=== PATIENT | female | born 1950 | race Caucasian/White ===

== ENCOUNTER 2017-04-18 22:36 | Emergency (ER) | payer MEDICARE ==
[~2017-04-18] VITALS: Ht 167.6 cm; Wt 75.8 kg
[~2017-04-18 22:36] MED LIST: AMOXIL500 MG PO; BENTYL20 MG PO; FLONASE 50 MCG16 GM; HYDROCHLOROTHIA1 TA2 PO; HYDROCHLOROTHIA1 TAB PO; K-DUR 2020 MEQ PO; LISINOPRIL 10MG10 MG PO; LISINOPRIL/HCTZ1 TA3 PO; PRILOSEC20 MG PO; ROBAXIN-750750 MG PO
[2017-04-18] MEDS ORDERED: BUSPAR 10MG TAB10 MG PO (22:49)
[2017-04-18] MEDS ORDERED: AMLO5TAB PO (22:49)
[2017-04-18] MEDS ORDERED: HCTZ/LISINOPRIL1 TA3 PO (22:50)
[2017-04-18] MEDS ORDERED: POTASSIUM CHLO20 ME2 PO (22:51)
[2017-04-18] MEDS ORDERED: VITAMIN D1000 IU PO (22:53)
--- OUTSIDE RECORDS SUMMARY | 2017-04-18 22:53 | External Medical Summary Rpt | CCD ---
Author Author [employer] Organization [employer] Address Unknown Phone Unavailable Purpose Continuity of Care Document - through 2016
--- OUTSIDE RECORDS SUMMARY | 2017-04-18 22:53 | External Medical Summary Rpt | CCD ---
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
--- OUTSIDE RECORDS SUMMARY | 2017-04-18 22:53 | External Medical Summary Rpt | CCD ---
Author Author , MORGAN BOX Address Unknown Phone [email or web address] Purpose Continuity of Care Document - through [...]
--- OUTSIDE RECORDS SUMMARY | 2017-04-18 22:54 | External Medical Summary Rpt | CCD ---
Author Author , CHARU BOX Address Unknown Phone Immunization Name Date Rout CVX Reac Dose Comm Prov Is Faci e tion ent ider Refu lity Give sed n Infl 10-1 Intr 0.5 Hist PD20 No PD20 uenz 8-20 amus mL oric 255 255 a 17 cula al Quad r Info rmat W/Pr ion es - Sour ce Unsp ecif ied
--- OUTSIDE RECORDS SUMMARY | 2017-04-18 22:54 | External Medical Summary Rpt | CCD ---
Author Author , CHARU BOX Address Unknown Phone [email or web address] Immunization Name Date Rout CVX Reac Dose Comm Prov Is Faci e tion ent ider Refu lity Give sed n Infl 10-1 Intr 0.5 Hist PD20 No PD20 uenz 8-20 amus mL oric 255 255 a 17 cula al Quad r Info rmat W/Pr ion es - Sour ce Unsp ecif ied
--- NOTE | 2017-04-18 23:13 | Emergency Room Report ---
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 N Clinical Suspician of Infection? N Mental Status: 1 - Regular (Normal Baseline) Sepsis Risk:Low Sepsis Risk Have you (or family members/close friends) recently traveled outside the [place]? N If Yes, where/when: Have you had exposure to infectious disease within the past month? N TB? Other? 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 w/o hemoptysis Cardiac Chest Pain Chest pain indicative of cardiac No Timing/Duration this evening Severity moderate ALLERGIES Coded Allergies: No Known Allergies (04/18/17) Home Medications Active Scripts Potassium Chloride (K-Dur) 20 MEQ PO DAILY #30 TER Ref 2 Prov: 12/20/16 Reported Medications Buspirone Hcl (Buspar 10MG) 10 MG PO DAILY #90 Amlodipine Besylate (Amlodipine) 5 MG PO DAILY #90 LISINOPRIL/HYDROCHLOROTHIAZIDE (Lisinopril-Hctz 20-12.5 MG Tab) 1 TAB PO DAILY #60 POTASSIUM CHL (Potassium Chloride) 20 MEQ PO DAILY CHOLECALCIFEROL (VITAMIN D3) (Vitamin D3) 50,000 IUNITS PO 2 X WEEK History Medical History General CAD? No Angina: No [place]: No Hypertension? Yes Hyperlipidemia? No CHF? No DVT? No PE? No COPD? No Asthma? Yes Anemia? No GERD? No Gastric ulcers? No GI Bleed? No Hernia? Yes Thyroid Problems? No Hypothyroidism? No CVA? No Seizures? No Diabetes? No Insulin Dependent: No Insulin Pump: No Home FSBS? No Renal Insuffiency? No End Stage Renal Disease? No UTI? Yes Stones? Yes BPH? No GB Disease: Yes Nephritic Syndrome? No Asplenia? No Hepatitis? No Sickle Cell Disease? No Arthritis? No Migraines? No Cataracts? No Glaucoma? No MRSA? No HIV? No TB? No Anxiety? No Depression? No Cancer? No More? 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 Respiratory cough, denies shortness of breath, denies wheezing Cardiovascular denies chest pain, denies syncope Gastrointestinal denies diarrhea, denies vomiting Genitourinary denies: dysuria, frequency, hesitancy, hematuria. Musculoskeletal denies back pain, denies joint pain, denies joint swelling, denies neck pain Skin denies rash Psychiatric/Neurological denies headache, denies seizure Physical Exam Vital Signs Vital Signs Date Time Temp Pulse Resp B/P Pulse O2 O2 Flow FiO2 Ox Delivery Rate 04/18 2242 98.7 70 22 160/87 99 - WBC >12,000 or <4,000 or 10% bands? 2 or more SIRS Criteria Met? B/P:160/87 MAP:111 Creatinine >2.0? UA output<0.5ml/kg/hr for 2 hrs? Platelet count >100,000? Lactate >2.0mmol/1? INR >1.2 or PTT > than 60 sec? Evidence of Organ Dysfunction? Provider documented clinical suspician of infection? N Sepsis Criteria Count: 1 Sepsis Risk: Low Sepsis Risk General Appearance no apparent distress Eye Exam - bilateral eye PERRL, bilateral eye EOMI Ear, Nose, Throat normal ENT inspection Neck supple Respiratory Status No: respiratory distress. Lung Sounds bilateral: rhonchi. 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 No Results/Orders Laboratory Tests 04/18/172312: Influenza Type A Ag NOT DETECTED, Influenza Type B Ag NOT DETECTED 04/18/172254: Lactic Acid 1.7 04/18/172254: Sodium 142, Potassium 3.2 L, Chloride 104, Carbon Dioxide 31, BUN 12, Creatinine 1.1 H, Estimated Creat Clear 60, Estimated GFR (MDRD) 50 L, Glucose 118 H, Calcium 9.1, Total Bilirubin 0.3, AST 13 L, ALT 18, Alkaline Phosphatase 98, Total Protein 6.9, Albumin 3.4, Globulin 3.5 H, Albumin/ Globulin Ratio 1.0 L, WBC 10.2, RBC 4.33, Hgb 13.2, Hct 38.5, MCV 88.9, RDW 14.2, Plt Count 274, MPV 8.2, Gran % 49.9, Gran # 5.1, Lymphocytes % 41.4, Monocytes % 5.1, Eosinophils % 2.9, Basophils % 0.7, Lymphocytes # 4.2, Monocytes # 0.5, Eosinophils # 0.3, Basophils # 0.1, PUBS MCHC 34.3, MCH 30.5, Urine Color YELLOW, Urine Appearance CLEAR, Urine pH 6.0, Ur Specific [place] 1.010, Urine Protein NEGATIVE, Urine Ketones NEGATIVE, Urine Blood 1+ H, Urine Nitrate NEGATIVE, Urine Bilirubin NEGATIVE, Urine Urobilinogen 0.2, Ur Leukocyte Esterase TRACE H, Urine RBC 3-5, Urine WBC 3-5, Ur Squamous Epith Cells OCC, Urine Bacteria OCC, Urine Glucose NEGATIVE Current Medication Orders Sig/Phi Start time Last Medication Dose Route Stop Time Status Admin Benzonatate 0 .STK-MED ONE 04/18 2356 DC PO Levofloxacin 0 .STK-MED ONE 04/18 2355 DC .ROUTE Methylprednisolone 0 .STK-MED ONE 04/18 2355 DC Sodium Succinate .ROUTE Sodium Chloride 10 ML PRN PRN 04/18 2245 AC IV 04/19 2240 Orders Procedure Date/time Status INFLUENZA A&B ANTIGENS 04/18 2312 Complete CHEST(2 VIEWS-NOT PORTABLE) 04/18 2241 Active IV SALINE LOCK 04/18 2241 Active CULTURE, BLOOD 04/18 2241 Active URINALYSIS/COMPLETE 04/18 2241 Complete LACTIC ACID 04/18 2241 Complete CBC WITH AUTO DIFF 04/18 2241 Complete CHEM 12 PROFILE 04/18 2241 Complete XRAY/CT/US XRAY/CT/US XRAY chest XR interpretation by reviewed by me Xray Results normal/NAD Departure Departure Time of Disposition 2338 Disposition DC Home or Self Care(routine) Clinical Impression Primary Impression: Bronchitis Condition STABLE Referrals Desean Dunlap MD (Family) Patient Instructions DI for Cough -- Adult Additional Instructions fluids and see pcp and use meds Discharge Counseling Counseled pt/family regarding diagnosis, test results, medications/RX, follow up needs Prescriptions Current Visit Scripts BENZONATATE (Benzonatate) 100 MG PO TID #15 CAP Prednisone (Prednisone 20MG) 20 MG PO BID #10 TAB Azithromycin (Zithromycin (Z-MARCELINA) 250MG Tab) 250 MG PO DAILY #6 TAB TAKE TWO (2) TABLETS ON DAY 1, THEN ONE (1) TABLET DAY #2 THRU #5 ED Critical Care Critical Care No at 2401
--- NOTE | 2017-04-18 23:13 | Emergency Room Report ---
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 N Clinical Suspician of Infection? N Mental Status: 1 - Regular (Normal Baseline) Sepsis Risk:Low Sepsis Risk Have you (or family members/close friends) recently traveled outside the [place]? N If Yes, where/when: Have you had exposure to infectious disease within the past month? N TB? Other? Specify: Source patient, RN notes reviewed, family, old records Exam Limitations no limitations Comment pt with nnp cough and congestion over the last 2 days w/o hemoptysis Cardiac Chest Pain Chest pain indicative of cardiac No Timing/Duration this evening Severity moderate ALLERGIES Coded Allergies: No Known Allergies (04/18/17) Home Medications Active Scripts Potassium Chloride (K-Dur) 20 MEQ PO DAILY #30 TER Ref 2 Prov: 12/20/16 Reported Medications Buspirone Hcl (Buspar 10MG) 10 MG PO DAILY #90 Amlodipine Besylate (Amlodipine) 5 MG PO DAILY #90 LISINOPRIL/HYDROCHLOROTHIAZIDE (Lisinopril-Hctz 20-12.5 MG Tab) 1 TAB PO DAILY #60 POTASSIUM CHL (Potassium Chloride) 20 MEQ PO DAILY CHOLECALCIFEROL (VITAMIN D3) (Vitamin D3) 50,000 IUNITS PO 2 X WEEK History Medical History General CAD? No Angina: No [place]: No Hypertension? Yes Hyperlipidemia? No CHF? No DVT? No PE? No COPD? No Asthma? Yes Anemia? No GERD? No Gastric ulcers? No GI Bleed? No Hernia? Yes Thyroid Problems? No Hypothyroidism? No CVA? No Seizures? No Diabetes? No Insulin Dependent: No Insulin Pump: No Home FSBS? No Renal Insuffiency? No End Stage Renal Disease? No UTI? Yes Stones? Yes BPH? No GB Disease: Yes Nephritic Syndrome? No Asplenia? No Hepatitis? No Sickle Cell Disease? No Arthritis? No Migraines? No Cataracts? No Glaucoma? No MRSA? No HIV? No TB? No Anxiety? No Depression? No Cancer? No More? 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 Respiratory cough, denies shortness of breath, denies wheezing Cardiovascular denies chest pain, denies syncope Gastrointestinal denies diarrhea, denies vomiting Genitourinary denies: dysuria, frequency, hesitancy, hematuria. Musculoskeletal denies back pain, denies joint pain, denies joint swelling, denies neck pain Skin denies rash Psychiatric/Neurological denies headache, denies seizure Physical Exam Vital Signs Vital Signs Date Time Temp Pulse Resp B/P Pulse O2 O2 Flow FiO2 Ox Delivery Rate 04/18 2242 98.7 70 22 160/87 99 - WBC >12,000 or <4,000 or 10% bands? 2 or more SIRS Criteria Met? B/P:160/87 MAP:111 Creatinine >2.0? UA output<0.5ml/kg/hr for 2 hrs? Platelet count >100,000? Lactate >2.0mmol/1? INR >1.2 or PTT > than 60 sec? Evidence of Organ Dysfunction? Provider documented clinical suspician of infection? N Sepsis Criteria Count: 1 Sepsis Risk: Low Sepsis Risk General Appearance no apparent distress Eye Exam - bilateral eye PERRL, bilateral eye EOMI Ear, Nose, Throat normal ENT inspection Neck supple Respiratory Status No: respiratory distress. Lung Sounds bilateral: rhonchi. Cardiovascular regular rate/rhythm, systolic murmur Peripheral Pulses Pulses normal Yes Gastrointestinal soft Extremities normal inspection Strength 4 Upper Ext (L), 4 Upper Ext (R), 4 Lower Ext (L), 4 Lower Ext (R) Neurologic alert, ceramic saw tender II-XII nml as tested, no motor/sensory deficits Reflexes Reflexes normal No Mental status normal mood/affect Skin no rash cons.w/shingles Medical Decision Making LABS/Meds/Orders Pt receiving controlled substance in ED? No Results/Orders Laboratory Tests 04/18/172312: Influenza Type A Ag NOT DETECTED, Influenza Type B Ag NOT DETECTED 04/18/172254: Lactic Acid 1.7 04/18/172254: Sodium 142, Potassium 3.2 L, Chloride 104, Carbon Dioxide 31, BUN 12, Creatinine 1.1 H, Estimated Creat Clear 60, Estimated GFR (MDRD) 50 L, Glucose 118 H, Calcium 9.1, Total Bilirubin 0.3, AST 13 L, ALT 18, Alkaline Phosphatase 98, Total Protein 6.9, Albumin 3.4, Globulin 3.5 H, Albumin/ Globulin Ratio 1.0 L, WBC 10.2, RBC 4.33, Hgb 13.2, Hct 38.5, MCV 88.9, RDW 14.2, Plt Count 274, MPV 8.2, Gran % 49.9, Gran # 5.1, Lymphocytes % 41.4, Monocytes % 5.1, Eosinophils % 2.9, Basophils % 0.7, Lymphocytes # 4.2, Monocytes # 0.5, Eosinophils # 0.3, Basophils # 0.1, PUBS MCHC 34.3, MCH 30.5, Urine Color YELLOW, Urine Appearance CLEAR, Urine pH 6.0, Ur Specific [place] 1.010, Urine Protein NEGATIVE, Urine Ketones NEGATIVE, Urine Blood 1+ H, Urine Nitrate NEGATIVE, Urine Bilirubin NEGATIVE, Urine Urobilinogen 0.2, Ur Leukocyte Esterase TRACE H, Urine RBC 3-5, Urine WBC 3-5, Ur Squamous Epith Cells OCC, Urine Bacteria OCC, Urine Glucose NEGATIVE Current Medication Orders Sig/Phi Start time Last Medication Dose Route Stop Time Status Admin Benzonatate 0 .STK-MED ONE 04/18 2356 DC PO Levofloxacin 0 .STK-MED ONE 04/18 2355 DC .ROUTE Methylprednisolone 0 .STK-MED ONE 04/18 2355 DC Sodium Succinate .ROUTE Sodium Chloride 10 ML PRN PRN 04/18 2245 AC IV 04/19 2240 Orders Procedure Date/time Status INFLUENZA A&B ANTIGENS 04/18 2312 Complete CHEST(2 VIEWS-NOT PORTABLE) 04/18 2241 Active IV SALINE LOCK 04/18 2241 Active CULTURE, BLOOD 04/18 2241 Active URINALYSIS/COMPLETE 04/18 2241 Complete LACTIC ACID 04/18 2241 Complete CBC WITH AUTO DIFF 04/18 2241 Complete CHEM 12 PROFILE 04/18 2241 Complete XRAY/CT/US XRAY/CT/US XRAY chest XR interpretation by reviewed by me Xray Results normal/NAD Departure Departure Time of Disposition 2338 Disposition DC Home or Self Care(routine) Clinical Impression Primary Impression: Bronchitis Condition STABLE Referrals Desean Dunlap MD (Family) Patient Instructions DI for Cough -- Adult Additional Instructions fluids and see pcp and use meds Discharge Counseling Counseled pt/family regarding diagnosis, test results, medications/RX, follow up needs Prescriptions Current Visit Scripts BENZONATATE (Benzonatate) 100 MG PO TID #15 CAP Prednisone (Prednisone 20MG) 20 MG PO BID #10 TAB Azithromycin (Zithromycin (Z-MARCELNIA) 250MG Tab) 250 MG PO DAILY #6 TAB TAKE TWO (2) TABLETS ON DAY 1, THEN ONE (1) TABLET DAY #2 THRU #5 ED Critical Care Critical Care No at 7723
[2017-04-18 23:15] LABS: HEMOGLOBIN 13.2 g/dL (12.2-16.2); LYMPH # 4.2 K/mm3 (0.7-4.5); LYMPH % 41.4 % (10-50.0)
[2017-04-18 23:46] LABS: URINE BILIRUBIN - DIPSTICK NEGATIVE (NEG); URINE BLOOD 1+ (NEG)
[2017-04-18 23:52] LABS: URINE SQUAMOUS CELLS OCC #/hpf (0-5)
[2017-04-18] MEDS ORDERED: ZITHROMAX Z PA250 MG PO (23:58)
[2017-04-18] MEDS ORDERED: PREDNISONE 20MG20 MG PO (23:58)
[2017-04-18] MEDS ORDERED: TESSALON PERLE100 MG PO (23:58)
[2017-04-19 00:07] VITALS: BP 160/87
--- NOTE | 2017-04-19 04:55 | RADIOLOGY REPORT PS360 ---
CHEST(2 VIEWS-NOT PORTABLE) HISTORY: Cough C/O COUGH ORDERING PHYSICIAN: Luis Eduardo Gonzalez MD PATIENT AGE: 66 years COMPARISON: 12/20/2016 FINDINGS: Unremarkable cardiovascular structures. Atelectatic or fibrotic changes are present in the left lower lung zone adjacent to the cardiac apex. There is chronic coarsening of the bronchovascular markings with hyperinflation consistent with obstructive chronic bronchitis. No lobar consolidation or collapse. There is however increased markings in the right lung base medially which may be due to patchy area of atelectasis or infiltrate. There is evidence of old granulomatous disease and there is mild reversal of the normal thoracic kyphosis. Chronic. IMPRESSION: 1. Atelectasis or infiltrate in right lung base. 2. Obstructive chronic bronchitis.
== END 2017-04-19 00:14 | disposition home or self-care (01) ==
LOC: ER 22:36
PROVIDERS: Emergency Medicine
DX: J40 Bronchitis, not specified as acute or chronic (principal); I10 Essential (primary) hypertension; Z79.899 Other long term (current) drug therapy; F17.210 Nicotine dependence, cigarettes, uncomplicated